=== PATIENT | female | born 1955 | race Caucasian/White ===

== ENCOUNTER 2017-12-21 06:17 | Day surgery (SDC) | payer MEDICARE, BC, OTHER ==
[~2017-12-21] VITALS: Ht 162.6 cm; Wt 113.4 kg
[~2017-12-21 06:17] MED LIST: ALBUTEROL SULF8.5 GM INH; AMARYL2 MG PO; ASPIR-LOW81 MG PO; CALCIUM 600 +1 EA16 PO; DELZICOL400 M1 PO; GLUCOPHAGE1000 MG PO; HYDROMORPHONE HC4 MG PO; KETOROLAC TROME10 MG PO; LIALDA1.2 GM PO; LISINOPRIL-HCT1 EAC2 PO; NAPROXEN375 MG PO; NORCO 5-325 TA1 EACH PO; POTASSIUM99 M1 PO; PROAIR HFA8.5 GM INH; PROTONIX20 MG PO; PROTONIX40 MG PO; SIMVASTATIN40 MG PO
--- NOTE | 2017-12-21 08:22 | NUR ---
12/21/17 0822 Zuleika Marcial 0816 PT ARRIVED IN PACU VERY SLEEPY.
--- NOTE | 2017-12-21 10:49 | NUR ---
1015: O2 TURNED OFF. PATIENT TRIAL ON ROOM AIR. PATIENT SATS DROPPED TO 88% ON ROOM AIR. REPLACED O2 AT 1 L/MIN VIA NC.
--- NOTE | 2017-12-21 13:53 | NUR ---
UP TO BATHROOM. VOIDED. BACK IN ROOM GETTING DRESSED.
--- NOTE | 2017-12-21 14:30 | NUR ---
1200: PATIENT ASSISTED OOB. PATIENT C/O DIZZINESS, GAIT UNSTEADY. PATIENT ESCORTED TO BATHROOM VIA WHEELCHAIR. VOID WITHOUT DIFFICULTY. PATIENT BACK TO ROOM VIA WHEELCHAIR. 1230: PATIENT CONTINUES TO C/O SIGNIFICANT DIZZINESS WELL NAUSEA. BEDSIDE CBG CHECKED, 156 MG/DL. 1300: PB&J SANDWICH ORDERED. PATIENT TOLERATED HALF OF SANDWICH. PATIENT NOW DROWSY. SLEEPING, AWAKENS TO VOICE, BUT FALLS BACK TO SLEEP. 1325: PATIENT O2 SAT DROPPED TO 83% WHILE SLEEPING. REPLACED O2 1 L/MIN VIA NC.
--- NOTE | 2017-12-23 10:17 | OR ---
[facility] [address], [place] [address] Signed DATE OF OPERATION: 12/21/2017 SURGEON: Paras Soto MD PREOPERATIVE DIAGNOSES: 1. Crohn's disease, status post ileocecectomy. 2. Anal pain. 3. Hemorrhoids. 4. Iron-deficiency anemia. 5. Gastroesophageal reflux disease. 6. Personal history of colonic polyps. POSTOPERATIVE DIAGNOSES: 1. Diffuse gastropathy. 2. Long redundant colon. 3. Moderate internal hemorrhoids. 4. Sigmoid diverticulum x1. PROCEDURES: 1. EGD with CLOtest and biopsies of the antrum and body of the stomach. 2. Colonoscopy without biopsy. ESTIMATED BLOOD LOSS: None. INDICATIONS: Marifer is a 62-year-old, obese, diabetic female diagnosed with Crohn's disease a few years ago. She had part of the ileum and her cecum removed. In the meantime, she says she is doing much better on Humira. She came to [place] and has been living with her brother. However, she is planning to move back to [place] here in the near future. More recently, she has had some pain at the anus and said it is worse with bowel movements. She thinks there is a lump in the way. She has also been anemic and requiring iron tablets. She is known to have acid reflux as well as a personal history of colonic polyps. There is no family history of colon cancer, polyps, or Crohn's disease. She was asked to see me for upper and lower endoscopy. I met with Marifer in the office and I gave her a pamphlet on both upper and lower endoscopy. We looked at that together along with the risks including, but not limited to, gas bloating, crampy abdominal pain, bleeding, perforation, requiring surgery, and missed diagnosis. We also discussed the need for IV conscious sedation. She had expressed understanding and wished to proceed. Electronically Signed By: PARAS SOTO MD 12/23/17 1017 PATIENT NAME: MARIFER MARSHALL OPERATIVE REPORT DATE OF : 53 PHYSICIAN: PARAS SOTO MD REPORT #: [id number] REPORT IS CONFIDENTIAL AND NOT TO BE RELEASED WITHOUT AUTHORIZATION [facility] [address], [place] [address] Signed PROCEDURE NOTE: Marifer was taken into our endoscopy suite and placed in the supine semi-recumbent position. She was given divided doses of 9 mg of Versed and 150 mcg of fentanyl to cover her for both procedures. The posterior oropharynx was anesthetized with Hurricaine spray. A bite block was utilized for the case. The adult gastroscope was introduced and advanced all the way around into the third portion of the duodenum under direct visualization of the camera without difficulty. The duodenum and pyloric channel were unremarkable. The stomach showed some diffuse moderate gastropathy. We took biopsies out of the antrum and body of the stomach for pathologic review. We saw no gastric or esophageal varices. After this, the scope and had been retroflexed and I really did not have a good view of her GE junction. I could not see an obvious hiatal hernia. The scope was then withdrawn up through the GE junction, which was compliant without stricture. She had minimal disruption to her Z-line. There was no Hua's mucosa, no distal esophagitis. The middle and upper esophagus were unremarkable. After this, the gas was suctioned out and the gastroscope removed. Marifer tolerated her upper endoscopy quite well. Marifer was then rotated into the left lateral decubitus position. She was maintained on her IV sedation with the Versed and fentanyl. A digital rectal exam was performed and she has good sphincter tone. She has some small external skin tags. After this, the adult colonoscope was introduced and advanced under direct visualization of camera. We found out she has a very long redundant colon. It took extra time in abdominal compression and extra medication in order to advance the scope up to hepatic flexure and eventually down to the beginning of her right colon. I could not quite get the camera right to the end and so I could not see the anastomosis because of the liquid stool. Otherwise, her prep was good. The scope was then slowly withdrawn. No pathology throughout the entire colon except a single diverticulum in her sigmoid colon. The rectum was unremarkable. Upon retroflexion of the scope, she does have moderate internal hemorrhoid columns. After this, the gas was suctioned out and the colonoscope removed. Marifer tolerated the procedure quite well. RECOMMENDATIONS: I will see Marifer back in my office in 7 to 14 days to review her results. Paras Soto MD ALB/MODL Electronically Signed By: PARAS SOTO MD 12/23/17 1017 PATIENT NAME: MARIFER MARSHALL OPERATIVE REPORT DATE OF : 53 PHYSICIAN: PARAS SOTO MD REPORT #: [id number] REPORT IS CONFIDENTIAL AND NOT TO BE RELEASED WITHOUT AUTHORIZATION [place] [address] Signed /[id number] cc: Shaylee Abdi PA-C Electronically Signed By: PARAS SOTO MD 12/23/17 1017 PATIENT NAME: MARIFER MARSHALL OPERATIVE REPORT DATE OF : 53 PHYSICIAN: PARAS SOTO MD REPORT #: [id number] REPORT IS CONFIDENTIAL AND NOT TO BE RELEASED WITHOUT AUTHORIZATION
== END 2017-12-21 14:00 | disposition home or self-care (01) ==
LOC: OPS 06:17 → DS 06:17 → OPS 06:45
PROVIDERS: Colon & Rectal Surgery
PROC: 0DJD8ZZ Inspection of Lower Intestinal Tract, Via Natural or Artificial Opening Endoscopic (ICD-10-PCS; 2017-12-21)
PROC: 0DB68ZX Excision of Stomach, Via Natural or Artificial Opening Endoscopic, Diagnostic (ICD-10-PCS; principal; 2017-12-21 07:00)
PROC: 0DB78ZX Excision of Stomach, Pylorus, Via Natural or Artificial Opening Endoscopic, Diagnostic (ICD-10-PCS; 2017-12-21 07:00)
DX: K29.50 Unspecified chronic gastritis without bleeding (principal); K57.30 Diverticulosis of large intestine without perforation or abscess without bleeding; K21.9 Gastro-esophageal reflux disease without esophagitis; K64.8 Other hemorrhoids; D50.9 Iron deficiency anemia, unspecified; K62.89 Other specified diseases of anus and rectum; K31.9 Disease of stomach and duodenum, unspecified; I10 Essential (primary) hypertension; J44.9 Chronic obstructive pulmonary disease, unspecified; K92.1 Melena; K76.0 Fatty (change of) liver, not elsewhere classified; E78.5 Hyperlipidemia, unspecified; E66.9 Obesity, unspecified; E04.1 Nontoxic single thyroid nodule; E11.9 Type 2 diabetes mellitus without complications; M16.12 Unilateral primary osteoarthritis, left hip; M51.16 Intervertebral disc disorders with radiculopathy, lumbar region; Z86.010 Personal history of colon polyps; Z98.51 Tubal ligation status; Z90.89 Acquired absence of other organs; Z90.2 Acquired absence of lung [part of]; Z85.118 Personal history of other malignant neoplasm of bronchus and lung; Z88.0 Allergy status to penicillin
CPT/HCPCS: 86677; 88305; J2250; J2405; J3010; J7120